=== PATIENT | female | born 1970 | race Caucasian/White ===

== ENCOUNTER 2016-11-23 12:35 | Emergency (ER) | payer SELFPAY ==
--- OUTSIDE RECORDS SUMMARY | 2016-11-23 13:26 | XMS REPORT | Continuity of Care Document ---
:1970 Author Organization [employer] [place] [address] Care Team Providers Name Role Phone Provider, None Per Patient Primary Care Provider Unavailable Source Comments This disclosure is being made pursuant to the [employer] program and maynot contain all information available regarding this patient.[employer] Active Allergies and Adverse Reactions No Known Allergies Current Medications Be aware that medications may not be up to date as of this document. Alwaysverify current medications with the patient. Prescription Sig. Disp. Refills Start Date End Date Status ondansetron Take 1 tablet by 10 tablet 0 09/08/2015 Active (ZOFRAN-ODT) 4 MG mouth every 8 disintegrating tablet (eight) hours as needed for Nausea. Dissolve tablet in mouth when taking ibuprofen Take 800 mg by Active (ADVIL,MOTRIN) 800 MG mouth every 6 tablet (six) hours as needed for Pain. HYDROcodone-acetaminop Take 1 tablet by Active hen (NORCO) 5-325 MG mouth every 6 per tablet (six) hours as needed for Pain. cephALEXin (KEFLEX) Take 1 capsule 210 capsule 0 09/10/2015 Active 500 MG capsule by mouth 2 (two) times daily. Active Problems No known active problems Immunizations Name Dates Previously Given Next Due Meningococcal Conjugate 08/23/2012 Pneumococcal Polysaccharide-23 08/23/2012 Social History Tobacco Use Types Packs/Day Years Used Date Current Every Day Smoker 1 Alcohol Use Drinks/Week oz/Week Comments No Alcoholic Drinks/day: Alcohol Use: 4 drinks per wk Last Filed Vital Signs Vital Sign Reading Time Taken Blood Pressure 109/68 09/10/2015 3:09 AM CDT Pulse 77 09/10/2015 3:09 AM CDT Temperature 37.2 C (99 F) 09/10/2015 3:09 AM CDT Respiratory Rate 20 09/10/2015 3:09 AM CDT Height 1.74 m (5' 8.5") 09/08/2015 10:19 AM CDT Weight 81.647 kg (180 lb) 09/08/2015 10:19 AM CDT Body Mass Index 26.97 09/08/2015 10:19 AM CDT Oxygen Saturation 95% 09/10/2015 3:09 AM CDT Plan of Care Health Maintenance Due Date Last Done Comments Tetanus/Pertussis (1 - Tdap) 1989 Pap Smear 08/24/2015 08/23/2012 Influenza Immunization (#1) 2016 Pneumococcal Medium Risk 19-64 yo Completed 08/23/2012 Results from Last 3 Months Not on file Insurance Payer Benefit Plan / Group Subscriber ID Type Phone Address [facility] [id number] PPO [phone] [id number] [place] [address] Home: [address] [phone] [place] [address]
[2016-11-23] MEDS ORDERED: KETOROLAC TROMETHAMINE 60 MG/2 ML VIAL IM ONE ×2 (13:31→13:33)
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
[2016-11-23 13:42] LABS: Urine Bilirubin 1 mg/dl (NEGATIVE); Urine Blood 250 /ul (NEGATIVE); Urine Ketone Negative (NEGATIVE); Urine Protein >=300 mg/dL (NEGATIVE); Urine Specific Gravity 1.025 SP.GR. (1.005-1.010); Urine Urobilinogen Normal (NORMAL)
[2016-11-23 13:51] LABS: Urine Nitrite Positive (NEGATIVE)
[2016-11-23 13:52] LABS: Urine Appearance Cloudy; Urine Bacteria 1+; Urine Color Dark Yellow; Urine RBC >50 /hpf (0-5); Urine WBC >50 /hpf (0-5)
[2016-11-23 14:13] LABS: Hematocrit 42.2 % (37.0-47.0); Hemoglobin 14.3 gm/dL (12.5-16.0); Mean Cell Volume 94.2 fl (78-100); Mean Corpuscular Hemoglobin 31.9 pg (27-31); Mean Corpuscular Hgb Conc 33.9 g/dl (32-36); Mean Platelet Volume 10.6 fl (6.0-9.5); Neutrophil # 11.6 K/mm3 (1.3-6.0); Neutrophil % 73.7 % (42-75.0); Platelet Count 283 K/mm3 (150-450); Red Blood Count 4.48 M/mm3 (4.2-5.4); Red Cell Distribution Width 14.3 % (11.5-14.0); White Blood Count 15.8 K/mm3 (4.0-10.5)
[2016-11-23 14:26] LABS: Albumin * 3.6 gm/dl (3.4-5.0); Anion Gap 10.8 mmol/L (6.8-13.8); BUN/Creatinine Ratio 12.9 (9.0-21.6); Bilirubin, Total 0.5 mg/dL (0.0-1.1); Ca. Corrected For Albumin 9.2 mg/dL (8.4-10.2); Calcium * 9.2 mg/dL (7.9-10.9); Carbon Dioxide 31.2 mmol/L (24-32.6); Total Protein 7.6 gm/dL (6.2-8.2)
[2016-11-23] MEDS ORDERED: TAMSULOSIN HCL 0.4 MG CAP.SR.24H PO ONE ×2 (15:00→15:02)
[2016-11-23] MEDS ORDERED: NAPROXEN SODIUM 550 MG TABLET PO ONE (15:00)
[2016-11-23] MEDS ORDERED: NAPROXEN SODIUM 550 MG TABLET ONE (15:02)
[2016-11-23 15:24] VITALS: BP 123/64
== END 2016-11-23 15:10 | disposition home or self-care (01) ==
LOC: ER 12:35
DX: N20.1 Calculus of ureter (principal); Z72.0 Tobacco use

== ENCOUNTER 2016-11-25 10:47 | Emergency (ER) | payer SELFPAY ==
--- NOTE | 2016-11-25 11:29 | ERNOTE ---
ER Female HPI Date of Service: 11/25/16 Stated Complaint: KIDNEY STONE Presenting Symptoms: other - Flank pain, hematuria, fever Time Seen by Provider: 11/25/16 11:12 Source: patient, family, RN notes reviewed, past records Exam Limitations: other - Very poor historian Immunizations: IMMUNIZATION HX Immunizations Up to Date Yes Allergies/Adverse Reactions: Allergies No Known Allergies Allergy (Verified 11/25/16 11:00) - History of Present Illness Narrative: Shantal is a 46-year-old female brought to the emergency Department by private vehicle with ongoing flank pain and hematuria. She was initially evaluated for this 2 days ago and was diagnosed with a ureteral stone. Her pain had begun 2 days prior to this. She was scheduled follow-up in urology today, but for reasons that do not seem to make sense cancel her appointment. She reports that she was contacted by a male who told her to drink cranberry juice and her symptoms should improve. She has been straining her urine and has not captured a stone. This morning she has been vomiting and has begun running a fever. Her urine culture from 2 days ago shows Escherichia coli but she was not prescribed an antibiotic at that visit. She reports having just a few sips of water this morning. Date (Duration): 11/21/16 Timing: Present: getting worse Quality: Present: severe Onset Location: Present: LLQ Prior Abdominal Problems: Present: similar symptoms Review of Systems - Review of Systems Constitutional: Present: See HPI EYE: Present: no symptoms reported ENT: Present: no symptoms reported Respiratory: Present: no symptoms reported Cardiology: Present: no symptoms reported Gastrointestinal/Abdominal: Present: nausea, vomiting, abdominal pain Genitourinary: Present: pain, dysuria, hematuria. Absent: decreased urinary output Musculoskeletal: Present: See HPI Skin: Present: no symptoms reported Neurological: Present: no symptoms reported Endocrine: Present: no symptoms reported Hematologic/Lymphatic: Absent: easy bruising, easy bleeding Psych: Present: no symptoms reported - Patient's Past Medical History Patient History - Medical: Kidney stone Patient History - Cardiac/Respiratory: No pertinent hx Patient History - Cancer: No Hx of Cancer Patient History - Surgical Procedures: Other Patient History - Other: None LMP (females 10-50): Menopausal - Social History Living Situations: spouse Psych History: No pertinent hx Smoking Status: Current every day smoker Alcohol Use: rarely Drug Use: marijuana - Immunizations Immunizations Up to Date: Yes Physical Exam - Physical Exam General Appearance: Present: wd/wn, alert, mild distress, other - Disheveled appearing Respiratory: Present: no respiratory distress, no accessory muscle use Neurological Exam: Present: alert, oriented, normal mood/affect Skin Exam: Present: normal color, warm/dry ED Progress - Vital Signs Patient's Vital Signs:: I have reviewed the patient's vital signs. Vital Signs: Vital Signs 11/25/16 10:53 Temperature 37.9 C H Pulse Rate 98 Respiratory 18 Rate Blood Pressure 100/58 O2 Sat by Pulse 97 Oximetry - Progress/Reassessment Chief Complaint: Genitourinary Problem Progress:: Unchanged Plan - Plan Plan: Dr. Wilde was contacted regarding the patient's ongoing symptoms. Despite her noncompliance, he agrees to see her in clinic this morning. The patient will be taken from the emergency department to the specialty clinic. Departure Clinical Impression: Ureteral stone UTI (urinary tract infection) Qualifiers: Urinary tract infection type: site unspecified Hematuria presence: with hematuria Qualified Code(s): N39.0 - Urinary tract infection, site not specified ; R31.9 - Hematuria, unspecified - Departure Disposition: Other health care facility Condition: Stable
[2016-11-25 11:42] VITALS: BP 135/78
--- OUTSIDE RECORDS SUMMARY | 2016-11-25 11:42 | XMS REPORT | Continuity of Care Document ---
:1970 Author Organization [employer] [place] [address] Care Team Providers Name Role Phone Provider, None Per Patient Primary Care Provider Unavailable Source Comments This disclosure is being made pursuant to the [employer] program and maynot contain all information available regarding this patient.[employer] Active Allergies and Adverse Reactions No Known [...] / Group Subscriber ID Type Phone Address [facility] [id number] PPO [phone] [id number] [place] [address] Home: [address] [phone] [place] [address]
== END 2016-11-25 11:40 | disposition short-term general hospital (02) ==
LOC: ER 10:47
DX: N20.1 Calculus of ureter (principal); N39.0 Urinary tract infection, site not specified; R31.9 Hematuria, unspecified

== ENCOUNTER 2016-11-25 12:47 | Inpatient (IN) | payer SELFPAY ==
--- OUTSIDE RECORDS SUMMARY | 2016-11-25 12:51 | XMS REPORT | Continuity of Care Document ---
:1970 Author Organization [employer] [place] [address] Care Team Providers Name Role Phone Provider, None Per Patient Primary Care Provider Unavailable Source Comments This disclosure is being made pursuant to the [employer] program and maynot contain all information available regarding this patient.[employer] Active Allergies and Adverse Reactions No Known [...] Subscriber ID Type Phone Address [facility] [id number] PPO [phone] [id number] [place] [address] Home: [address] [phone] [place] [address]
[2016-11-25] MEDS ORDERED: NORMAL SALINE 1,000 ML IV PRN (13:04)
[2016-11-25] MEDS ORDERED: NORMAL SALINE 1,000 ML IV ONE (13:15)
--- OUTSIDE RECORDS SUMMARY | 2016-11-25 14:15 | XMS REPORT | Continuity of Care Document ---
:1970 Author Organization [employer] [place] [address] Care Team Providers Name Role Phone Provider, None Per Patient Primary Care Provider Unavailable Source Comments This disclosure is being made pursuant to the [employer] program and maynot contain all information available regarding this patient.[employer] Active Allergies and Adverse Reactions No Known [...] / Group Subscriber ID Type Phone Address [facility] [id number] PPO [phone] [id number] [place] [address] Home: [address] [phone] [place] [address]
[2016-11-25] MEDS: RINGERS SOLUTION,LACTATED 1,000 ML IV ONE ×2 (14:35→19:18)
[2016-11-25] MEDS: NORMAL SALINE 1,000 ML IV ONE (14:35)
[2016-11-25] MEDS ORDERED: IOPAMIDOL 100 ML INFUS..BTL IJ ONE (14:40)
[2016-11-25] MEDS ORDERED: RINGERS SOLUTION,LACTATED 1,000 ML IV ONE (15:00)
--- NOTE | 2016-11-25 15:02 | OR ---
Operative Report - Dictated Report Narrative: Location: [ Main OR ] Anesthesia: [ General ] Surgeon: [ Dr. Wilde ] Preoperative diagnosis: Right midureteral calculus stone(s) and UTI with associated sepsis Postoperative diagnosis: Same with delayed excretion on left side during retrograde Procedure: #1 Cystoscopy with bladder aspiration for culture and [ Bilateral ] retrograde pyelograms with bilateral 6 x 26 double-J stents #2 16 Malaysian Mejía Indications: 46-year-old female seen on Wednesday in the emergency room with obstructing right stone, culture with resistant Escherichia coli susceptible only to nitrofurantoin orally which is not good for tissue penetration only excreted in the urine. In the office today she looks septic to avoid, severely symptomatic and ill. Continued to have right-sided flank pain with right-sided CVA tenderness and some mild left-sided tenderness. Scars options and elected to proceed with above-mentioned procedure Description: Consent obtained. Patient brought to the operating room where [ general endotracheal anesthesia] was induced. Placed in the dorsal lithotomy position. Prepped and draped. Timeout taken. Rigid cystoscope introduced into the bladder with ease. Urine with debris. Bladder with significant cystitis type change and ulceration consistent with infection. Aspiration for culture. [ Bilateral ] retrogrades obtained and interpreted by Dr. Quevedo. Right ureter identified intubated with 5 Malaysian catheter and right retrograde obtained. Distal and mid ureter normal caliber without filling defects. Above the pelvic vessels ureter looked a bit more dilated as did the upper collecting system. I did not see obvious filling defect although way retrograde was done in piecemeal fashion makes it very difficult if stone is small and floats within the contrast column. Definite debris with hydronephrotic drip after the retrograde and so Bentson wire was advanced followed by placement of a 6 x 26 double-J stent with good drainage of cloudy urine consistent with upper tract infection. Left ureter identified intubated with 5 Malaysian catheter and left retrograde obtained. Distal and mid ureter normal caliber without filling defects. Proximal ureter likewise revealed no filling defects and no dilation. Upper collecting system was a bit more delicate on this side again consistent with a normal retrograde however upon removal of the catheter the ureter did not drain promptly. There was hang-up of contrast in the kidney and ureter and very poor peristalsis. I took serial images and waited for at least 5 minutes to see if the kidney would drain and at no point did it really started to drain well. Given her septic joint picture I did not want to take any chances and so Bentson wire was advanced 6 x 26 double-J stent deployed.. In an effort to maximize drainage Mejía catheter was also placed without incident. Specimen: Bladder aspiration for culture EBL: 0 ml Condition: [ tolerated procedure ] Important findings: Definite UTI with active cystitis. Definite upper tract colonization on the right with radiographic evidence of some dilation and possible stone. Abnormal left retrograde mainly with delayed excretion. Follow-up: Patient will return next Wednesday for definitive management with right ureteroscopy with laser/basket and bilateral stent removal with possible replacement. Patient needs to be admitted for IV antibiotics for at least 48 hours. We will send blood cultures post procedure although she has received a dose of ceftriaxone. If white count elevated, fevers persist past 48 hours or blood cultures positive will need 10-14 days of IV antibiotics otherwise I think it is safe to transition to nitrofurantoin once white count normalizes, no fevers and patient is feeling better. Nitrofurantoin does not have tissue penetration so not a great agent if still has systemic infection which I do not think she will have in a couple of days if she turns the corner promptly. Problem is she is resistant to all other good oral antibiotics so we'll need IV. I am placing her on the schedule for surgical treatment of the stone next Wednesday. From my standpoint can be discharged home in 2-3 days again if white count normal, no systemic signs of infection, no CVA tenderness and blood cultures negative. If blood cultures positive definitely needs 2 weeks of IV antibiotics and surgery will be delayed. Catheter can come out tomorrow.
[2016-11-25 15:24] LABS: Hematocrit 37.4 % (37.0-47.0); Hemoglobin 12.7 gm/dL (12.5-16.0); Mean Cell Volume 94.7 fl (78-100); Mean Corpuscular Hemoglobin 32.2 pg (27-31); Mean Platelet Volume 10.3 fl (6.0-9.5); Neutrophil # 9.8 K/mm3 (1.3-6.0); Platelet Count 251 K/mm3 (150-450); Red Blood Count 3.95 M/mm3 (4.2-5.4); White Blood Count 12.5 K/mm3 (4.0-10.5)
[2016-11-25] MEDS ORDERED: MORPHINE SULFATE 2 MG/ML DISP.SYRIN IV PRN (17:13)
[2016-11-25] MEDS ORDERED: ONDANSETRON HCL/PF 2 MG/ML VIAL IV PRN (17:16)
[2016-11-25] MEDS: ACETAMINOPHEN 500 MG TABLET PO PRN (20:17)
[2016-11-26] MEDS: HYDROmorphone HCL 1 MG/ML DISP.SYRIN IV PRN ×2 (02:35→09:57)
[2016-11-26] MEDS: ACETAMINOPHEN 500 MG TABLET PO PRN (02:38)
[2016-11-26 08:21] LABS: Hematocrit 36.2 % (37.0-47.0); Hemoglobin 12.5 gm/dL (12.5-16.0); Mean Cell Volume 93.5 fl (78-100); Mean Corpuscular Hemoglobin 32.3 pg (27-31); Mean Corpuscular Hgb Conc 34.5 g/dl (32-36); Mean Platelet Volume 10.6 fl (6.0-9.5); Neutrophil # 14.5 K/mm3 (1.3-6.0); Neutrophil % 79.1 % (42-75.0); Platelet Count 251 K/mm3 (150-450); Red Blood Count 3.87 M/mm3 (4.2-5.4); Red Cell Distribution Width 14.2 % (11.5-14.0); White Blood Count 18.4 K/mm3 (4.0-10.5)
[2016-11-26 08:28] LABS: BUN/Creatinine Ratio 17.6 (9.0-21.6); Calcium * 8.4 mg/dL (7.9-10.9); Carbon Dioxide 24.7 mmol/L (24-32.6); Estimated Creat Clear 95.8; Potassium 3.7 mmol/L (3.4-4.6)
[2016-11-26] MEDS: ENOXAPARIN SODIUM 40 MG/0.4 ML SYRG SC SCH (09:03)
[2016-11-26] MEDS: ACETAMINOPHEN 325 MG TABLET PO PRN (16:54)
--- NOTE | 2016-11-26 17:58 | HP ---
Chief Complaint - Chief Complaint Date of Service: 11/26/16 Time of Service: 17:44 Chief Complaint: Right flank pain History of Present Illness: This is a 46 year old woman who developed severe right flank pain last week end. Dr. Quevedo had her scheduled for stone surgery, but she cancelled, hoping the stone would pass on its own, due to cost and insurance issues. She now lives in [place], having just moved here from [place]. She does not yet have a family physician. A urine culture from November 23 grew E. coli, resistant to most oral antibiotics. Just prior to this admission, her pain worsened, and she developed chills. CT scan showed a 3-4 mm right ureteral stone. Shortly after noon yesterday, Dr. Quevedo took her to surgery. For details of surgery, please see his operative report. For subsequent plans, please also refer to that report. She is now on every 12 hour Rocephin. She continues to have substantial right sided pain and her wbc count this morning was [address]34, but she is afebrile. - Patient's Past Medical History Patient History - Medical: Kidney stone Patient History - Cardiac/Respiratory: No pertinent hx Patient History - Cancer: No Hx of Cancer Patient History - Surgical Procedures: Other Patient History - Other: None LMP (females 10-50): Menopausal - Family History Mother Family History - Medical: Alzheimer's Disease Family History - Cardiac/Respiratory: No pertinent hx Family History - Cancer: No pertinent family hx Maternal Uncle Family History - Medical: Other Family History - Cardiac/Respiratory: No pertinent hx Family History - Cancer: Kidney, Lung - Social History Living Situations: spouse Psych History: Hx of Anxiety, Hx of Depression Smoking Status: Current every day smoker Have you smoked in the past 12 months: Yes Do you dip or chew tobacco: No Smoking Start Date: 05/17/85 Patient requests Smoking Cessation Consult: No Initiate information on Smoking Cessation: No Alcohol Use: occasionally Drug Use: marijuana, other - Immunizations Immunizations Up to Date: Yes Review Of Systems (GEN) - Review of Systems Generalized/Overall Review: Present: Chills EENTM: Present: No Symptoms Reported Respiratory: Present: No Symptoms Reported Cardiac: Present: No Symptoms Reported Abdominal: Present: Nausea Genitourinary: Present: Other - see HPI Musculoskeletal: Present: No Symptoms Reported Neurological: Present: No Symptoms Reported Skin: Present: No Symptoms Reported Endocrine: Present: No Symptoms Reported Misc: All systems neg except as marked Immunizations: IMMUNIZATION HX Immunizations Up to Date Yes Allergies/Adverse Reactions: Allergies Allergy/AdvReac Type Severity Reaction Status Date / Time No Known Allergies Allergy Verified 11/25/16 15:40 Home Medications: HOME MEDICATIONS NK [No Home Medication] 11/25/16 [Last Taken Unknown] Exam - Exam Vital Signs: Vital Signs - Last Taken Selected Entries 11/26/16 11/26/16 14:48 17:00 Temperature 37.2 C 37.4 C Temperature Temporal Artery Temporal Artery Source Scan Scan Pulse Rate 61 Respiratory 12 Rate Respiratory Normal Depth Respiratory Normal Effort Blood Pressure 102/63 Blood Pressure Sitting Position O2 Sat by Pulse 98 Oximetry Oxygen Delivery Room Air Method Constitutional: Present: Alert, Oriented x3, Cooperative, Well developed, Well nourished, Mild distress ENT Exam: Present: normal ENT inspection, hearing grossly normal Eye Exam: bilateral eye: normal inspection, PERRL, EOMI Neck: Present: normal inspection Back Exam: Present: normal inspection, CVA tenderness (R) Respiratory: Present: normal breath sounds, no respiratory distress Cardiovascular/Chest: Present: regular rate, rhythm, no murmur Abdomen: Present: Normal bowel sounds, soft, nondistended, no rebound tenderness , no hepatospenomegaly, no masses, tender - with deep palpation RLQ Extremity: Present: normal inspection, no pedal edema Skin Exam: Present: normal color, warm/dry, no cyanosis Neurologic: Present: alert, oriented x 3 Appearance: Present: appropriate appearance, appropriate insight, neat, no memory impairment Eye contact: Present: cooperative, good eye contact, normal speech Thoughts: Present: normal thought pattern Diagnostic Studies: Abnormal Lab Results 11/26/16 11/26/16 Range/Units 08:15 08:15 WBC 18.4 H D (4.0-10.5) K/mm3 RBC 3.87 L (4.2-5.4) M/mm3 Hct 36.2 L (37.0-47.0) % MCH 32.3 H (27-31) pg RDW 14.2 H (11.5-14.0) % MPV 10.6 H (6.0-9.5) fl Immature Gran % (Auto) 0.50 H (0.001-0.429) % Immature Gran # (Auto) 0.09 H (0.000-0.0310) K/mm3 Neutrophils % 79.1 H (42-75.0) % Lymphocytes % 14.6 L (20-51) % Neutrophils # 14.5 H (1.3-6.0) K/mm3 Random Glucose 171 H D (70-110) mg/dL Microbiology 11/25/16 15:54 Blood Culture - Preliminary Blood NO GROWTH 24 HOURS 11/25/16 15:15 Blood Culture - Preliminary Blood NO GROWTH 24 HOURS 11/25/16 14:14 Urine Culture - Preliminary Urine,Catheterized No Growth Laboratory Results WBC 18.4 K/mm3 (4.0-10.5) H D 11/26/16 08:15 RBC 3.87 M/mm3 (4.2-5.4) L 11/26/16 08:15 Hgb 12.5 gm/dL (12.5-16.0) 11/26/16 08:15 Hct 36.2 % (37.0-47.0) L 11/26/16 08:15 MCV 93.5 fl (78-100) 11/26/16 08:15 MCH 32.3 pg (27-31) H 11/26/16 08:15 MCHC 34.5 g/dl (32-36) 11/26/16 08:15 RDW 14.2 % (11.5-14.0) H 11/26/16 08:15 Plt Count 251 K/mm3 (150-450) 11/26/16 08:15 MPV 10.6 fl (6.0-9.5) H 11/26/16 08:15 Immature Gran % (Auto) 0.50 % (0.001-0.429) H 11/26/16 08:15 Immature Gran # (Auto) 0.09 K/mm3 (0.000-0.0310) H 11/26/16 08:15 Neutrophils % 79.1 % (42-75.0) H 11/26/16 08:15 Lymphocytes % 14.6 % (20-51) L 11/26/16 08:15 Monocytes % 5.7 % (0.0-9) 11/26/16 08:15 Eosinophils % 0.0 % (0.0-3.0) 11/26/16 08:15 Basophils % 0.1 % (0.0-1.0) 11/26/16 08:15 Nucleated RBC % 0.0 k/mm3 (0-1) 11/26/16 08:15 Neutrophils # 14.5 K/mm3 (1.3-6.0) H 11/26/16 08:15 Lymphocytes # 2.7 k/mm3 (1.5-3.5) 11/26/16 08:15 Monocytes # 1.0 k/mm3 (0.0-1.0) 11/26/16 08:15 Eosinophils # 0.0 k/mm3 (0.0-0.7) 11/26/16 08:15 Absolute Basophils 0.0 k/mm3 (0.0-0.1) 11/26/16 08:15 Sodium 138 mmol/L (132-142) 11/26/16 08:15 Plasma Sodium 139 mmol/L (130-142) 11/26/16 08:15 Potassium 3.7 mmol/L (3.4-4.6) 11/26/16 08:15 Chloride 104 mmol/L (97-106) 11/26/16 08:15 Carbon Dioxide 24.7 mmol/L (24-32.6) 11/26/16 08:15 Anion Gap 13.0 mmol/L (6.8-13.8) 11/26/16 08:15 BUN 13 mg/dL (3-23) 11/26/16 08:15 Creatinine 0.74 mg/dL (0.4-1.4) 11/26/16 08:15 Est GFR (Non-Af Amer) 90 mL/min (60-130) 11/26/16 08:15 BUN/Creatinine Ratio 17.6 (9.0-21.6) 11/26/16 08:15 Random Glucose 171 mg/dL (70-110) H D 11/26/16 08:15 Calcium 8.4 mg/dL (7.9-10.9) 11/26/16 08:15 Assessment/Plan - Narrative Narrative: IV antibiotics. Follow labs. Pain control. Estimate stay another 1-several days. Plan for re-operative manipulation next Wednesday. - Assessment/Plan (1) UTI (urinary tract infection) Problem: Acute (2) Ureteral stone Problem: Acute
--- NOTE | 2016-11-27 05:45 | PN ---
<Ermelinda Muller - Last Filed: 11/27/16 05:49> Subjective - Date and Time Seen Date: 11/27/16 Time: 05:44 Subjective Narrative: pt states she is feeling much better. body aches and chills are gone. Objective - Review of Systems Generalized/Overall Review: Reports: No Symptoms Reported EENTM: Reports: No Symptoms Reported Respiratory: Reports: No Symptoms Reported Cardiac: Reports: No Symptoms Reported Abdominal: Reports: No Symptoms Reported Genitourinary Symptoms: Reports: No Symptoms Reported Musculoskeletal Complaints: Reports: No Symptoms Reported Neurological: Reports: No Symptoms Reported Skin: Reports: No Symptoms Reported Endocrine: Reports: No Symptoms Reported Misc: All systems neg except as marked - Vitals Vitals: Last Vital Signs Temp 37.0 C 11/27/16 04:00 Pulse 68 11/27/16 04:00 Resp 18 11/27/16 04:00 BP 94/52 11/27/16 04:00 Pulse Ox 98 11/27/16 04:00 - Abnormal Lab Findings Abnormal Lab Findings: Abnormal Lab Results 11/26/16 11/26/16 Range/Units 08:15 08:15 WBC 18.4 H D (4.0-10.5) K/mm3 RBC 3.87 L (4.2-5.4) M/mm3 Hct 36.2 L (37.0-47.0) % MCH 32.3 H (27-31) pg RDW 14.2 H (11.5-14.0) % MPV 10.6 H (6.0-9.5) fl Immature Gran % (Auto) 0.50 H (0.001-0.429) % Immature Gran # (Auto) 0.09 H (0.000-0.0310) K/mm3 Neutrophils % 79.1 H (42-75.0) % Lymphocytes % 14.6 L (20-51) % Neutrophils # 14.5 H (1.3-6.0) K/mm3 Random Glucose 171 H D (70-110) mg/dL - Exam Constitutional: Present: Alert, Cooperative, No distress ENT Exam: Present: hearing grossly normal Neck: Present: full range of motion, supple Breasts: Present: Exam deferred Respiratory: Present: normal breath sounds, no respiratory distress, no accessory muscle use Cardiovascular/Chest: Present: normal peripheral pulses, regular rate, rhythm, no chest tenderness Abdomen: Present: soft, nontender, nondistended /Rectal: Present: Exam deferred Extremity: Present: non-tender, normal inspection, no calf tenderness Skin Exam: Present: normal color, warm/dry, no cyanosis Cauti Physician Documentation - Urinary Catheter Management warren Date of Removal: 11/26/16 Time of Removal: 09:00 Assessment/Plan Plan Narrative: UTI / ureteral stone - s/p cystoscopy with bilat retrograd pyelogram with bilat stents placed - Abx: Rocephin 1 gm q 12 hours - awaiting final urine culture - awaiting final blood cultures - Per Dr. Baca Op Report, september d/c patient when (provided no signs of systemic infection) - wbc trending down - no CVA tenderness - no s/s of systemic infection - blood cultures are negative. - Patient is physically doing much better this am than compared to 12 hours ago. - am labs pending Plan: Continue Abx and await final cultures. Code status: DNR VTE: lovenox GI Proph: protonix po - Problems/Diagnosis (1) UTI (urinary tract infection) Problem: Acute (2) Ureteral stone Problem: Acute <Nate Limon - Last Filed: 11/27/16 17:01> Subjective Subjective Narrative: I have discussed the situation with Dr. Quevedo, and we will continue in this direction for now. I directly supervised all of our nurse practitioner care for this patient. Objective - Vitals Vitals: Last Vital Signs Temp 36.9 C 11/27/16 14:58 Pulse 65 11/27/16 14:58 Resp 18 11/27/16 14:58 BP 103/57 11/27/16 14:58 Pulse Ox 93 11/27/16 14:58 - Abnormal Lab Findings Abnormal Lab Findings: Abnormal Lab Results 11/27/16 Range/Units 05:45 WBC 14.9 H (4.0-10.5) K/mm3 RBC 3.97 L (4.2-5.4) M/mm3 Hct 36.9 L (37.0-47.0) % MCH 32.0 H (27-31) pg MPV 11.1 H (6.0-9.5) fl Neutrophils # (Manual) 8.5 H (1.3-6.0) K/mm3 Lymphocytes # (Manual) 4.8 H (1.5-3.5) k/mm3 Monocytes # (Manual) 1.2 H (0.0-1.0) k/mm3 Assessment/Plan - Problems/Diagnosis (1) UTI (urinary tract infection) Problem: Acute (2) Ureteral stone Problem: Acute
[2016-11-27 06:13] LABS: Hematocrit 36.9 % (37.0-47.0); Hemoglobin 12.7 gm/dL (12.5-16.0); Mean Cell Volume 92.9 fl (78-100); Mean Corpuscular Hgb Conc 34.4 g/dl (32-36); Mean Platelet Volume 11.1 fl (6.0-9.5); Platelet Count 256 K/mm3 (150-450); Red Blood Count 3.97 M/mm3 (4.2-5.4); White Blood Count 14.9 K/mm3 (4.0-10.5)
[2016-11-27 06:15] LABS: Total Cells Counted 100
[2016-11-27 06:20] LABS: Anion Gap 10.3 mmol/L (6.8-13.8); BUN/Creatinine Ratio 9.5 (9.0-21.6); Calcium * 8.5 mg/dL (7.9-10.9); Estimated Creat Clear 84.4; Potassium 4.3 mmol/L (3.4-4.6)
[2016-11-27 06:38] LABS: Band 1 % (0-2.0); Basophil 1 % (0-1); Howell-Jolly Bodies 1+; Immature Granulocyte 1 (0-1); Lymphocyte 32 % (20-51); Macrocytosis 1+; Monocyte 8 % (0-9); Neutrophil 57 % (42-75); Neutrophil # 8.5 K/mm3 (1.3-6.0); Platelet Estimate Normal (NORMAL); Target Cells 3+
[2016-11-27] MEDS: PANTOPRAZOLE SODIUM 40 MG TABLET.EC PO SCH (07:18)
[2016-11-27] MEDS: ENOXAPARIN SODIUM 40 MG/0.4 ML SYRG SC SCH (07:19)
[2016-11-27] MEDS: ACETAMINOPHEN 325 MG TABLET PO PRN ×2 (14:49→23:01)
--- NOTE | 2016-11-27 16:55 | PN ---
Subjective - Date and Time Seen Date: 11/27/16 Time: 07:30 Subjective Narrative: Much better today. WBC count 14 000. I've spoken with Dr. Quevedo. He's thinking the diagnosis is most likely urosepsis and the best approach will be 10 days of IV Rocephin in the annex, with which I agree. Objective - Review of Systems Generalized/Overall Review: Reports: No Symptoms Reported EENTM: Reports: No Symptoms Reported Respiratory: Reports: No Symptoms Reported Cardiac: Reports: No Symptoms Reported Abdominal: Reports: No Symptoms Reported Genitourinary Symptoms: Reports: No Symptoms Reported Musculoskeletal Complaints: Reports: No Symptoms Reported Neurological: Reports: No Symptoms Reported Skin: Reports: No Symptoms Reported Endocrine: Reports: No Symptoms Reported Misc: All systems neg except as marked - Vitals Vitals: Last Vital Signs Selected Entries 11/27/16 06:00 Temperature 36.8 C Temperature Temporal Artery Source Scan Pulse Rate 73 Respiratory 18 Rate Respiratory Normal Depth Blood Pressure 105/62 Blood Pressure Supine Position O2 Sat by Pulse 94 Oximetry Oxygen Delivery Room Air Method - Abnormal Lab Findings Abnormal Lab Findings: Abnormal Lab Results 11/27/16 Range/Units 05:45 WBC 14.9 H (4.0-10.5) K/mm3 RBC 3.97 L (4.2-5.4) M/mm3 Hct 36.9 L (37.0-47.0) % MCH 32.0 H (27-31) pg MPV 11.1 H (6.0-9.5) fl Neutrophils # (Manual) 8.5 H (1.3-6.0) K/mm3 Lymphocytes # (Manual) 4.8 H (1.5-3.5) k/mm3 Monocytes # (Manual) 1.2 H (0.0-1.0) k/mm3 - Exam Constitutional: Present: Alert, Oriented x3, Cooperative, Well developed, Well nourished, No distress ENT Exam: Present: normal ENT inspection, hearing grossly normal Neck: Present: normal inspection Respiratory: Present: normal breath sounds, no respiratory distress Cardiovascular/Chest: Present: regular rate, rhythm, no murmur Abdomen: Present: Normal bowel sounds, soft, nontender, nondistended, no rebound tenderness, no hepatospenomegaly, no masses, obese Extremity: Present: normal inspection, no pedal edema Neurologic: Present: alert, oriented x 3 Appearance: Present: appropriate appearance, appropriate insight, neat, no memory impairment Eye contact: Present: cooperative, good eye contact, normal speech Thoughts: Present: normal thought pattern Cauti Physician Documentation - Urinary Catheter Management warren Date of Removal: 11/26/16 Time of Removal: 09:00 Assessment/Plan Plan Narrative: Much better. Continue current treatment. If wbc count normal tomorrow, discharge. Will do 10 days of IV antibiotics in the annex, with surgery as outpatient on Wednesday next week. - Problems/Diagnosis (1) UTI (urinary tract infection) Problem: Acute (2) Ureteral stone Problem: Acute
[2016-11-28 04:48] LABS: Hematocrit 36.7 % (37.0-47.0); Hemoglobin 12.2 gm/dL (12.5-16.0); Mean Cell Volume 95.6 fl (78-100); Mean Corpuscular Hemoglobin 31.8 pg (27-31); Mean Corpuscular Hgb Conc 33.2 g/dl (32-36); Mean Platelet Volume 10.8 fl (6.0-9.5); Neutrophil % 33.8 % (42-75.0); Platelet Count 265 K/mm3 (150-450); Red Blood Count 3.84 M/mm3 (4.2-5.4); Red Cell Distribution Width 14.3 % (11.5-14.0); White Blood Count 8.9 K/mm3 (4.0-10.5)
--- NOTE | 2016-11-28 05:30 | PN ---
<Ermelinda Muller - Last Filed: 11/28/16 05:30> Subjective - Date and Time Seen Date: 11/28/16 Time: 05:14 Subjective Narrative: feeling good. denies cp, dyspnea, chills, dyspnea. Objective Objective Narrative: WBC is WNL this am. - Review of Systems Generalized/Overall Review: Reports: No Symptoms Reported EENTM: Reports: No Symptoms Reported Respiratory: Reports: No Symptoms Reported Cardiac: Reports: No Symptoms Reported Abdominal: Reports: No Symptoms Reported Genitourinary Symptoms: Reports: No Symptoms Reported Musculoskeletal Complaints: Reports: No Symptoms Reported Neurological: Reports: No Symptoms Reported Skin: Reports: No Symptoms Reported Endocrine: Reports: No Symptoms Reported Misc: All systems neg except as marked - Vitals Vitals: Last Vital Signs Temp 36.8 C 11/28/16 03:00 Pulse 62 11/28/16 03:00 Resp 19 11/28/16 03:00 BP 95/49 11/28/16 03:00 Pulse Ox 96 11/28/16 03:00 - Abnormal Lab Findings Abnormal Lab Findings: Abnormal Lab Results 11/27/16 11/28/16 Range/Units 05:45 04:45 WBC 14.9 H (4.0-10.5) K/mm3 RBC 3.97 L 3.84 L (4.2-5.4) M/mm3 Hgb 12.2 L (12.5-16.0) gm/dL Hct 36.9 L 36.7 L (37.0-47.0) % MCH 32.0 H 31.8 H (27-31) pg RDW 14.3 H (11.5-14.0) % MPV 11.1 H 10.8 H (6.0-9.5) fl Neutrophils % 33.8 L (42-75.0) % Monocytes % 13.8 H (0.0-9) % Neutrophils # (Manual) 8.5 H (1.3-6.0) K/mm3 Lymphocytes # 4.4 H (1.5-3.5) k/mm3 Lymphocytes # (Manual) 4.8 H (1.5-3.5) k/mm3 Monocytes # 1.2 H (0.0-1.0) k/mm3 Monocytes # (Manual) 1.2 H (0.0-1.0) k/mm3 - Exam Constitutional: Present: Alert, Oriented x3, Cooperative, No distress ENT Exam: Present: hearing grossly normal Neck: Present: full range of motion, supple Breasts: Present: Exam deferred Respiratory: Present: lungs clear, normal breath sounds, no respiratory distress Cardiovascular/Chest: Present: normal peripheral pulses, regular rate, rhythm, no chest tenderness Abdomen: Present: soft, nontender, nondistended. Absent: CVA tenderness /Rectal: Present: Exam deferred Extremity: Present: non-tender, normal inspection, no calf tenderness Skin Exam: Present: normal color, warm/dry, no cyanosis Cauti Physician Documentation - Urinary Catheter Management warren Date of Removal: 11/26/16 Time of Removal: 09:00 Assessment/Plan Plan Narrative: UTI / ureteral stone - s/p cystoscopy with bilat retrograd pyelogram with bilat stents placed - Abx: Rocephin 1 gm q 12 hours - Per Dr. Baca - recommend 10 days of IV rocephin in annex - WBC wnl this am ? d/c this am. Code status: DNR VTE: lovenox GI Proph: protonix po - Problems/Diagnosis (1) UTI (urinary tract infection) Problem: Acute (2) Ureteral stone Problem: Acute <Nate Limon - Last Filed: 11/28/16 15:14> Subjective Subjective Narrative: things are much better. I have discussed direction with Dr. Quevedo. He feels this is urosepsis, and that she will be best managed with 10 days of IV Rocephin. I directly supervised our nurse practitioner hospitalist. Objective - Vitals Vitals: Last Vital Signs Temp 36.4 C L 11/28/16 06:07 Pulse 62 11/28/16 06:07 Resp 16 11/28/16 06:07 BP 93/37 11/28/16 06:07 Pulse Ox 95 11/28/16 06:07 - Abnormal Lab Findings Abnormal Lab Findings: Abnormal Lab Results 11/28/16 Range/Units 04:45 RBC 3.84 L (4.2-5.4) M/mm3 Hgb 12.2 L (12.5-16.0) gm/dL Hct 36.7 L (37.0-47.0) % MCH 31.8 H (27-31) pg RDW 14.3 H (11.5-14.0) % MPV 10.8 H (6.0-9.5) fl Neutrophils % 33.8 L (42-75.0) % Monocytes % 13.8 H (0.0-9) % Lymphocytes # 4.4 H (1.5-3.5) k/mm3 Monocytes # 1.2 H (0.0-1.0) k/mm3 Assessment/Plan - Problems/Diagnosis (1) UTI (urinary tract infection) Problem: Acute (2) Ureteral stone Problem: Acute (3) E. coli sepsis Problem: Acute
[2016-11-28 06:09] VITALS: BP 93/37
[2016-11-28] MEDS: PANTOPRAZOLE SODIUM 40 MG TABLET.EC PO SCH (07:06)
[2016-11-28] MEDS: ENOXAPARIN SODIUM 40 MG/0.4 ML SYRG SC SCH (07:49)
--- NOTE | 2016-11-28 08:25 | DS ---
(1) UTI (urinary tract infection) Diagnosis(s): With E. coli Problem: Acute (2) Ureteral stone Problem: Acute (3) E. coli sepsis Problem: Acute Description of Stay: Treated with IV Rocephin every 12 hours and slowly improved. Treatment was discussed between Dr. Quevedo and me along the way and agreed upon. Today she is afebrile, asymptomatic and her wbc count has normalized. The plan will be 9 more days of once daily Rocephin in the annex starting tomorrow. She will see Dr. Quevedo this coming Wednesday for further urologic surgery. She may see me in the future if she wishes for primary care, as she does not yet have a primary care physician. Procedures Performed: see notes below - Cystoscopy with bladder aspiration for culture and [ Bilateral ] retrograde pyelograms with bilateral 6 x 26 double -J stents Discharge Disposition: Home self care Disposition: Home self-care Condition: Good Discharge Activity: Activity as tolerated Discharge Diet: General/regular food Consultation Done:: Dr. Quevedo Problem Oriented Discharge Instructions to Patient/Family: Renal Colic, Easy-to -Read, Pyelonephritis, Adult, Urosepsis Additional Patient Instructions (free text): Please make sure she knows when and where she needs to be for her urologic surgery with Dr. Quevedo this coming Wednesday. I would be happy to be her primary care doctor, as she does not yet have one. If she so desires, help her make an appt this morning with me for two weeks from now, [facility]. Prescriptions (Any new or edited meds): HYDROcodone/ACETAMINOPHEN [[place] 5-325] 1 - 2 tab PO QID PRN #20 tab PRN Reason: Pain cefTRIAXone SODIUM [Ceftriaxone (Rocephin)] 1,000 mg IV DAILY #9 vial Complete Home Medications List: Complete Home Medication List: HYDROcodone/ACETAMINOPHEN [[place] 5-325] 1 - 2 tab PO QID PRN #20 tab 11/28/16 cefTRIAXone SODIUM [Ceftriaxone (Rocephin)] 1,000 mg IV DAILY #9 vial 11/28/16
== END 2016-11-28 09:10 | disposition home or self-care (01) | DRG 690 ==
LOC: AMB 12:47 → MS 14:09
PROVIDERS: ADMIT Family Medicine; ATTEND Allergy & Immunology
PROC: BT14ZZZ Fluoroscopy of Kidneys, Ureters and Bladder (ICD-10-PCS; 2016-11-25)
PROC: 0T788DZ Dilation of Bilateral Ureters with Intraluminal Device, Via Natural or Artificial Opening Endoscopic (ICD-10-PCS; principal; 2016-11-25 14:20)
DX: N13.6 Pyonephrosis (principal); B96.20 Unspecified Escherichia coli [E. coli] as the cause of diseases classified elsewhere

== ENCOUNTER 2016-12-02 12:52 | Day surgery (SDC) | payer SELFPAY ==
[~2016-12-02 12:52] MED LIST: KETOROLAC TROMETHAMINE 15 MG/ML VIAL IV PRN; METOCLOPRAMIDE HCL 5 MG/ML VIAL IV PRN; MORPHINE SULFATE 2 MG/ML DISP.SYRIN IV PRN; NORMAL SALINE 1,000 ML IV PRN; ONDANSETRON HCL/PF 2 MG/ML VIAL IV PRN; OXYBUTYNIN CHLORIDE 5 MG TABLET PO PRN; oxyCODONE HCL/ACETAMINOPHEN 1 TAB TABLET PO PRN
--- OUTSIDE RECORDS SUMMARY | 2016-12-02 12:56 | XMS REPORT | Summary of Care ---
:1970 Author Organization [facility] Address [address] [place] [address] Care Team Providers Name Role Phone Physician, Primary Care Primary Care Physician Unavailable Encounter Date(s): 11/25/16 - 11/25/16 [facility], [address] [place] [address] [place] Discharge Diagnosis: Ureteral stone with hydronephrosis Discharge Disposition: 01 Discharged to Home or Self Care Attending Physician: Andry Quevedo MD Referring Physician: Andry Quevedo MD Vital Signs Most recent to oldest [Reference Range]: 1 Blood Pressure [90-130/60-90 mmHg] 122/72mmHg (11/25/16 12:15 PM) Mean Arterial Pressure, Cuff 89 mmHg (11/25/16 12:15 PM) Most recent to oldest [Reference Range]: 1 Height/Length Measured 172 cm (11/25/16 12:15 PM) Weight Dosing 82 kg (11/25/16 12:15 PM) Problem List Condition Effective Dates Status Health Status Informant Ureteral stone with Active hydronephrosis(Confirmed) Allergies, Adverse Reactions, Alerts No Known Medication Allergies Medications HYDROcodone-acetaminophen 5 mg-325 mg oral tablet 1 tab(s), Oral, q6hr, PRN for pain, # 24 tab(s), 0 Refill(s), Start Date: 12:34:00 CDT, Pharmacy: [facility] [id number] Start Date: 11/25/16 Status: OrderedZofran ODT 4 mg oral tablet, disintegrating 1 tab(s), Oral, q8hr interval, PRN nausea, # 20 tab(s), 1 Refill(s), Start Date : 11/25/16 12:34:00 CDT, Pharmacy: [facility] [id number] Start Date: 11/25/16 Status: Ordered Results No data available for this section Immunizations No data available for this section Procedures Procedure Date Related Diagnosis Body Site Splenectomy Social History No data available for this section Assessment and Plan No data available for this section
--- OUTSIDE RECORDS SUMMARY | 2016-12-02 12:56 | XMS REPORT | Continuity of Care Document ---
:1970 Author Organization [facility] [place] [address] Care Team Providers Name Role Phone Provider, None Per Patient Primary Care Provider Unavailable Source Comments This disclosure is being made pursuant to the [employer] program and maynot contain all information available regarding this patient.[facility] Active Allergies and Adverse Reactions No Known [...] / Group Subscriber ID Type Phone Address [facility] [id number] PPO [phone] [id number] [place] [address] Home: [address] [phone] [place] [address]
--- NOTE | 2016-12-02 15:06 | OR ---
Operative Report - Dictated Report Narrative: Location: Main OR Anesthesia: General Surgeon: Dr. Wilde Preoperative diagnosis: Right ureteral stone(s) and prior UTI with associated right pyelonephritis/sepsis in the setting of an obstructing stone Postoperative diagnosis: Resolving cystitis some bladder debris, no obstructing ureteral calculus likely passed with stent, multiple submucosal calcifications/ Jed plaques but no other renal stones. Procedure: #1 Cystoscopy with Bilateral stent removal, bladder aspiration for culture #2 Right diagnostic ureteroscopy with right upper tract washing for culture and placement of a 5 by multi length double j stent Indications: 46-year-old female with severe UTI, prior obstructing right stone and septic picture in the setting of an obstructing stone. She is post cystoscopy with bilateral stenting, has been maintained on IV ceftriaxone secondary to very resistant positive culture and has done better clinically. Presents today for right ureteroscopy and stone extraction slice lithotripsy depending on findings with left stent removal and likely right stent replacement Description: Consent obtained. Patient brought to the operating room where general endotracheal anesthesia was induced. Placed in the dorsal lithotomy position. Prepped and draped. Timeout taken. Rigid cystoscope introduced into the bladder with ease and quick cystoscopy revealed no tumors, stones or suspicious lesions . Still with some resolving cystitis with multifocal erythema. There was a bit of debris in the bladder. Sample obtained sent for culture via aspiration. Left stent identified grasped and removed. Right stent identified grasped and removed per urethra and Bentson wire was fed through. Stent removed and wire secured as a safety wire Flexible ureteroscope was then used and advanced into the ureter alongside the wire. I did not encounter stone on the way up. Some areas of erythema possibly representing where the stone had been impacted. Navigated all the way to the kidney and Tong nephroscopy was carried out inspecting all calyces. There was a bit of nonspecific erythema and some mild debris. Washing was obtained sent for culture. A lot of the papilla had submucosal calcification but no distinct visible additional renal stones. Renal pelvis reinspected and no stones. Reexamine the ureter on the way down and I encountered no stones my suspicion is she did pass the stone alongside the stent. Given the severity of the infection, the nonspecific persistent erythema and the recent manipulation I elected to go ahead and replaced the right stent was done over the safety wire with a 5 by multi length stent. Specimen: Urine from bladder or culture. Urine from right kidney for culture EBL: 0 ml Condition: tolerated procedure Important findings: No obstructing stone. Nonspecific inflammation/debris of right kidney. Resolving bladder cystitis. Follow-up: We will finish off her IV antibiotic course. She will transitioned to nitrofurantoin prophylaxis which is the only agent to which are bacteria were susceptible to orally. I will remove the stent next Wednesday provided no more fevers chills or evidence of infection.
[2016-12-02 17:42] VITALS: BP 98/57
== END 2016-12-02 12:53 | disposition home or self-care (01) ==
LOC: AMB 12:52
PROVIDERS: ATTEND Urology
PROC: 0T768DZ Dilation of Right Ureter with Intraluminal Device, Via Natural or Artificial Opening Endoscopic (ICD-10-PCS; principal; 2016-12-02 16:40)
DX: N20.1 Calculus of ureter (principal); N30.80 Other cystitis without hematuria; N13.30 Unspecified hydronephrosis; Z68.27 Body mass index [BMI] 27.0-27.9, adult

== ENCOUNTER 2016-12-09 12:39 | Day surgery (SDC) | payer SELFPAY ==
[~2016-12-09 12:39] MED LIST changes: -KETOROLAC TROMETHAMINE 15 MG/ML VIAL IV PRN; -METOCLOPRAMIDE HCL 5 MG/ML VIAL IV PRN; -MORPHINE SULFATE 2 MG/ML DISP.SYRIN IV PRN; -ONDANSETRON HCL/PF 2 MG/ML VIAL IV PRN; -OXYBUTYNIN CHLORIDE 5 MG TABLET PO PRN; -oxyCODONE HCL/ACETAMINOPHEN 1 TAB TABLET PO PRN
--- OUTSIDE RECORDS SUMMARY | 2016-12-09 12:44 | XMS REPORT | Clinical Summary ---
:1970 Author Organization [facility] [place] [address] Care Team Providers Name Role Phone Unavailable Primary Care Provider Unavailable Source Comments This disclosure is being made pursuant to the [employer] program and maynot contain all information available regarding this patient.[facility] Allergies No Known Allergies Current Medications Be aware that medications may not be up to date as of this document. Alwaysverify current medications with the patient. Prescription Sig. Disp. Refills Start Date End Date Status ondansetron Take 1 tablet by 10 tablet 0 09/08/2015 Active (ZOFRAN-ODT) 4 MG mouth every 8 disintegrating (eight) hours as tabletIndications:Naus needed for ea and vomiting, Nausea. Dissolve unspecified tablet in mouth intactability, when taking vomiting of unspecified type ibuprofen Take 800 mg by Active (ADVIL,MOTRIN) [...] Due Meningococcal Conjugate 08/23/2012 Pneumococcal Polysaccharide-23 08/23/2012 Family History Medical History Relation Name Comments Other Other Coronary Artery Stenosis - Family History: Noted on Other Other Diabetes Mellitus - Family History: Noted on Other Other Renal Cell Carcinoma - Family History: Noted on Other Other Hypertension - Family History: Noted on Other Other Depression - Family History: Noted on Other Other Breast Cancer - Family History: Noted on Relation Name Status Comments Other Other Other Other Other Other Social History Tobacco Use Types Packs/Day Years Used Date Current Every Day Smoker 1 Alcohol Use Drinks/Week oz/Week Comments No Alcoholic Drinks/day: Alcohol Use: 4 drinks per wk Sex Assigned at Date Recorded Not on file Last Filed Vital Signs Vital Sign Reading Time Taken Blood Pressure 109/68 09/10/2015 3:09 AM CDT Pulse 77 09/10/2015 3:09 AM CDT Temperature 37.2 C (99 F) 09/10/2015 3:09 AM CDT Respiratory Rate 20 09/10/2015 3:09 AM CDT Oxygen Saturation 95% 09/10/2015 3:09 AM CDT Inhaled Oxygen Concentration - - Weight 81.6 kg (180 lb) 09/08/2015 10:19 AM CDT Height 174 cm (5' 8.5") 09/08/2015 10:19 AM CDT Body Mass Index 26.97 09/08/2015 10:19 AM CDT Plan of Treatment Health Maintenance Due Date Last Done Comments Tetanus/Pertussis (1 - Tdap) 1989 Pap Smear 08/24/2015 08/23/2012 INFLUENZA IMMUNIZATION (#1) 2016 Pneumococcal Medium Risk 19-64 yo Completed 08/23/2012 Results Not on filefrom Last 3 Months Insurance Payer Benefit Plan / Group Subscriber ID Type Phone Address CAROLYN GUEVARA [facility] [id number] PPO [id number] [place] [address] Home: [address] [phone] [place] [address]
[2016-12-09] MEDS ORDERED: NORMAL SALINE 1,000 ML IV ONE (13:12)
--- NOTE | 2016-12-09 13:52 | OR ---
Operative Report - Dictated Report Narrative: Preoperative diagnosis: Indwelling stent Postoperative diagnosis: Same Anesthesia: None Procedure: Flexible cystoscopy with stent removal Indications: Indwelling stent Descritpion: Consent obtained. Patient prepped and drapped. Lidocaine jelly used to anesthetize urethra. Flexible scope inserted and navigated to bladder. Stent identified, grasped and pulled per urethra. Patient tolerated. EBL: 0 ml Specimen: None Condition: Tolerated procedure Follow-up: 6 months KUB/UA, can follow with Katherine.
[2016-12-09 15:18] VITALS: BP 104/60
== END 2016-12-09 12:40 | disposition home or self-care (01) ==
LOC: AMB 12:39
PROVIDERS: ATTEND Urology
PROC: 0TP98DZ Removal of Intraluminal Device from Ureter, Via Natural or Artificial Opening Endoscopic (ICD-10-PCS; principal; 2016-12-09 14:10)
DX: Z46.6 Encounter for fitting and adjustment of urinary device (principal); Z68.27 Body mass index [BMI] 27.0-27.9, adult